=== PATIENT | male | born 1980 | race African-American/Black ===

== ENCOUNTER 2019-08-11 16:51 | Emergency (ER) | payer OTHER ==
[2019-08-11] MEDS ORDERED: Acetaminophen 500 MG TAB ONE (18:08)
[2019-08-11] MEDS ORDERED: Ibuprofen 800 MG TAB ONE (18:08)
[2019-08-11] MEDS ORDERED: Dexamethasone 4 mg/ml Vial ONE (18:08)
[2019-08-11] MEDS ORDERED: Ondansetron ODT 4 MG TAB ONE (18:08)
[2019-08-11] MEDS ORDERED: Bicillin LA 2.4 MILL.UNITS/4 ML SYRINGE ONE (18:08)
[2019-08-11] MEDS ORDERED: Bicillin LA 1.2 MILLION UNITS/2 ML SYRINGE ONE (18:11)
== END 2019-08-11 18:30 | disposition home or self-care (01) ==
LOC: ERS 16:51
DX: J02.9 Acute pharyngitis, unspecified (principal); F17.210 Nicotine dependence, cigarettes, uncomplicated; Z85.47 Personal history of malignant neoplasm of testis
CPT/HCPCS: 87081; 87430; 87804; 96372; 99283; J0561; J1100; Q0162

== ENCOUNTER 2023-02-06 19:23 | Emergency (ER) | payer SELFPAY ==
[2023-02-06] MEDS ORDERED: Lidocaine 1% MPF 2 ML VIAL ONE (20:01)
[2023-02-06] MEDS ORDERED: cefTRIAXone (ROCEPHIN) 500 MG VIAL ONE (20:01)
== END 2023-02-06 20:21 | disposition home or self-care (01) ==
LOC: ERS 19:23
DX: H10.9 Unspecified conjunctivitis (principal); F17.210 Nicotine dependence, cigarettes, uncomplicated; Z20.2 Contact with and (suspected) exposure to infections with a predominantly sexual mode of transmission
CPT/HCPCS: 96372; 99283; J0696

== ENCOUNTER 2025-05-01 08:14 | Emergency (ER) | payer BC, SELFPAY ==
[2025-05-01] MEDS ORDERED: Azithromycin 250 MG TAB ONE ×3 (08:58→09:05)
[2025-05-01] MEDS ORDERED: cefTRIAXone (ROCEPHIN) 500 MG VIAL ONE (08:58)
[2025-05-01 13:56] LABS: Chlam.trachomatis by PCR,Urine Not Detected (NotDetected); GC N.gonorrhoeae PCR,UrineVOID DETECTED (NotDetected)
== END 2025-05-01 09:28 | disposition home or self-care (01) ==
LOC: ERS 08:14
DX: N34.2 Other urethritis (principal); F17.210 Nicotine dependence, cigarettes, uncomplicated
CPT/HCPCS: 87491; 87591; 96372; 99283; J0696